=== PATIENT | male | born 1965 | race Caucasian/White ===

== ENCOUNTER → 2017-10-18 | Outpatient (CLI) | payer OTHER ==
[~2017-10-18] MED LIST: ASPI-621 PO; ATOR40TA PO; FAMO-79 PO; FENO145T32 PO; NICO-487 TD; TICA90TA PO
== END | disposition home or self-care (01) ==
LOC: CVU 09:46
PROVIDERS: ATTEND Internal Medicine Cardiovascular Disease
DX: I65.22 Occlusion and stenosis of left carotid artery (principal); Z86.73 Personal history of transient ischemic attack (TIA), and cerebral infarction without residual deficits
CPT/HCPCS: 93880